=== PATIENT | female | born 1965 | race Caucasian/White ===

== ENCOUNTER 2019-03-08 04:51 | Emergency (ER) | payer BC ==
[~2019-03-08] VITALS: Ht 162.6 cm; Wt 92.1 kg
[2019-03-08] MEDS ORDERED: ATENOLOL 100MG100 MG PO (05:07)
[2019-03-08] MEDS ORDERED: PENICILLIN V P500 MG PO (05:08)
[2019-03-08 05:28] VITALS: BP 164/81
== END 2019-03-08 05:28 | disposition home or self-care (01) ==
LOC: ER 04:51
DX: K04.7 Periapical abscess without sinus (principal); I10 Essential (primary) hypertension; E78.5 Hyperlipidemia, unspecified; G62.9 Polyneuropathy, unspecified; F17.200 Nicotine dependence, unspecified, uncomplicated; Z88.1 Allergy status to other antibiotic agents; Z88.5 Allergy status to narcotic agent; Z88.8 Allergy status to other drugs, medicaments and biological substances

== ENCOUNTER 2020-10-06 21:39 | Emergency (ER) | payer OTHER ==
[~2020-10-06] VITALS: Ht 160 cm; Wt 98.0 kg
[~2020-10-06 21:39] MED LIST: ATENOLOL 100MG100 MG PO; PENICILLIN V P500 MG PO
[2020-10-06] MEDS ORDERED: FLEXERIL PO (21:57)
[2020-10-06] MEDS ORDERED: TRAMADOL 50 MG50 MG PO (21:57)
[2020-10-06] MEDS ORDERED: NORCO 10-325 T1 EACH PO (21:57)
[2020-10-06] MEDS ORDERED: HYDROCHLOROTHIA25 M1 PO (21:57)
[2020-10-06 22:20] LABS: ABSOLUTE NEUTROPHILS 6.9 thou/uL (1.4-8.2); BASOPHILS 0.4 % (0.0-2.0); HEMATOCRIT 45.6 % (37.0-47.0); HEMOGLOBIN 15.5 gm/dL (12.0-15.0); LYMPHOCYTES 32.4 % (24.0-44.0); MCH 29.4 pg (26.0-34.0); MCV 86.4 fL (80.0-100.0); MONOCYTES 7.2 % (1.0-8.0); PLATELET COUNT 281 thou/uL (150-400); RBC 5.28 mil/uL (4.20-5.00); RDW 13.3 % (10.5-14.5); WBC 11.8 thou/uL (4.0-11.0)
[2020-10-06 22:49] LABS: ANION GAP 12 mmol/L (7-16); BUN 10 mg/dL (7-18); CALCIUM 9.1 mg/dL (8.5-10.1); CHLORIDE 98 mmol/L (98-107); CO2 26 mmol/L (21-32); CREATININE 0.9 mg/dL (0.6-1.0); GLUCOSE 309 mg/dL (74-106); POTASSIUM 3.5 mmol/L (3.5-5.1); SODIUM 136 mmol/L (136-145)
[2020-10-06 23:00] LABS: ALBUMIN 3.5 g/dL (3.4-5.0); LIPASE 143 U/L (73-393); SGOT 33 U/L (15-37); SGPT 42 U/L (30-65); TOTAL BILIRUBIN 0.3 mg/dL (0.2-1.0); TOTAL PROTEIN 7.7 g/dL (6.4-8.2); TROPONIN-I <0.06 ng/mL (<0.06)
[2020-10-06 23:49] VITALS: BP 152/88
--- NOTE | 2020-10-07 12:08 | EKG ---
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
--- NOTE | 2020-10-07 12:09 | EKG ---
[place] [address] [facility] [place] [address] ELECTROCARDIOGRAM REPORT Name: BRENDA DUNN Room #: 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 : 1965 Requested By: Fabián Balderas Order Number: [id number] MD: Moi Lopez Measurements Intervals [place] Rate: 81 P: 45 DE: 171 QRS: -51 QRSD: 99 T: 8 QT: 393 QTc: 457 Interpretive Statements Sinus rhythm Probable left atrial enlargement Abnormal R-wave progression, late transition Inferior infarct, old Compared to ECG 10/06/2020 21:45:24 Myocardial infarct finding now present Left anterior fascicular block no longer present T-wave abnormality no longer present Electronically Signed On 10-07-2020 12:09:08 CDT by Moi Lopez [email or web address] <ELECTRONICALLY SIGNED> By: Moi Lopez MD 10/07/20 1209 52 52 Moi Lopez MD /[facility]
--- NOTE | 2020-10-07 12:09 | EKG ---
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
== END 2020-10-07 | disposition left against medical advice (07) ==
LOC: ER 21:39
PROVIDERS: Emergency Medicine
DX: R07.89 Other chest pain (principal); I10 Essential (primary) hypertension; R73.9 Hyperglycemia, unspecified; G62.9 Polyneuropathy, unspecified; E78.5 Hyperlipidemia, unspecified; F17.210 Nicotine dependence, cigarettes, uncomplicated; Z88.8 Allergy status to other drugs, medicaments and biological substances; Z88.1 Allergy status to other antibiotic agents; Z79.899 Other long term (current) drug therapy